=== PATIENT | male | born 1985 | race Caucasian/White ===

== ENCOUNTER 2017-02-14 16:12 | Emergency (ER) | payer OTHER ==
[~2017-02-14] VITALS: Ht 172.7 cm; Wt 97.5 kg
[2017-02-14 16:13] VITALS: Ht 172.7 cm; Wt 97.5 kg
[2017-02-14] MEDS ORDERED: IBUP-1542 PO (17:07)
[2017-02-14] MEDS ORDERED: CYCL-319 PO (17:07)
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
== END 2017-02-14 17:44 | disposition home or self-care (01) ==
LOC: FTE 16:12
DX: M54.5 Low back pain (principal)
CPT/HCPCS: 99283